=== PATIENT | female | born 1970 | race Two or more races ===

== ENCOUNTER 2016-07-07 16:27 | Inpatient (IN) | payer OTHER ==
[~2016-07-07] VITALS: Ht 165.1 cm; Wt 63.1 kg
[2016-07-07 16:46] LABS: BASOPHILS # (AUTO) 0.6 /CMM (0.0-0.2); EOSINOPHILS # (AUTO) 0.1 /CMM (0.0-0.7); EOSINOPHILS % (AUTO) 1.3 % (0.0-6.0); HEMATOCRIT 24 % (33-45); HEMOGLOBIN 7.3 g/dL (11.5-14.8); LYMPHOCYTES # (AUTO) 1.5 /CMM (0.8-4.8); LYMPHOCYTES % (AUTO) 14.9 % (20.0-44.0); MEAN CORPUSCULAR HEMOGLOBIN 18 PG (26.0-33.0); MEAN CORPUSCULAR HGB CONC 31 g/dl (31.0-36.0); MEAN CORPUSCULAR VOLUME 60 fL (82-100); MONOCYTES % (AUTO) 10.5 % (2.0-12.0); NEUTROPHILS # (AUTO) 6.8 /CMM (1.8-8.9); NEUTROPHILS % (AUTO) 66.9 % (43.0-81.0); PLATELET COUNT (AUTO) 501 /CMM (150-450)
[2016-07-07 16:47] LABS: BASOPHILS % (AUTO) 6.4 % (0.0-2.0); DIFF TOTAL % 100 %
[2016-07-07 16:53] LABS: ANION GAP 12 (5-14); CALCIUM, SERUM 8.7 mg/dL (8.5-10.1); CARBON DIOXIDE 27 mmol/L (21-32); CHLORIDE 101 mmol/L (98-107); CREATININE 0.8 mg/dL (0.6-1.3); GFR 77 mL/min (>60); GLUCOSE 101 mg/dL (74-106); POTASSIUM 3.5 mmol/L (3.5-5.1); SODIUM SERUM 137 mmol/L (136-145); UREA NITROGEN, BLOOD 6 mg/dL (7-18)
[2016-07-07 16:57] LABS: PROTHROMBIN TIME 10.5 SECS (9.5-12.7)
[2016-07-07 16:59] LABS: ALANINE AMINOTRANSFERASE 20 U/L (12-78); ALBUMIN 4.2 g/dL (3.4-5.0); ASPARTATE AMINOTRANSFERASE 19 U/L (15-37); BILIRUBIN,DIRECT 0.1 mg/dL (0.0-0.2); BILIRUBIN,TOTAL 0.9 mg/dL (0.2-1.0); INDIRECT BILIRUBIN 0.8 mg/dL (0.0-1.1); TOTAL PROTEIN, SERUM 7.8 g/dL (6.4-8.2)
[2016-07-07 17:01] LABS: TROPONIN I < 0.017 ng/mL (0.00-0.056)
[2016-07-07 18:01] LABS: EOSINOPHILS % (MANUAL) 2 % (0-4); LYMPHOCYTES % (MANUAL) 18 % (16-48)
[2016-07-07 18:02] LABS: ANISOCYTOSIS 1+; PLATELET ESTIMATE INCREASED
[2016-07-07] MEDS ORDERED: ACETAMINOPHEN 325 MG TABLET PO ONE (18:30)
[2016-07-07 18:40] LABS: IRON, SERUM 14 ug/dl (50-175); PERCENT SATURATION 3 % (14-33); TOTAL IRON BINDING CAPACITY 563 ug/dl (250-450)
[2016-07-07] MEDS ORDERED: ACETAMINOPHEN 325 MG TABLET ONE (18:44)
[2016-07-07 20:00] VITALS: BP 128/81
[2016-07-07] MEDS ORDERED: ZOLPIDEM TARTRATE 5 MG TABLET PO PRN (20:00)
[2016-07-07] MEDS ORDERED: ACETAMINOPHEN 325 MG TABLET PO PRN (20:00)
[2016-07-07] MEDS: HYDROCODONE/APAP 5/325MG 1 EACH TABLET PO PRN (20:25)
[2016-07-07] MEDS ORDERED: BLOOD IV SET 1 EA INFUS.SET MC ONE (22:53)
[2016-07-07] MEDS ORDERED: IV NS 0.9% 250 ML IV ONE ×2 (22:53→23:35)
[2016-07-08] VITALS (15 sets, daily range): BP systolic 99–138; BP diastolic 65–84
[2016-07-08 07:45] LABS: CALCIUM, SERUM 8.5 mg/dL (8.5-10.1); CREATININE 0.8 mg/dL (0.6-1.3); POTASSIUM 3.7 mmol/L (3.5-5.1)
[2016-07-08 08:06] LABS: BASOPHILS % (AUTO) 0.3 % (0.0-2.0); DIFF TOTAL % 100 %; EOSINOPHILS # (AUTO) 0.1 /CMM (0.0-0.7); EOSINOPHILS % (AUTO) 0.8 % (0.0-6.0); HEMATOCRIT 29 % (33-45); HEMOGLOBIN 8.8 g/dL (11.5-14.8); LYMPHOCYTES # (AUTO) 0.9 /CMM (0.8-4.8); MEAN CORPUSCULAR HEMOGLOBIN 21 PG (26.0-33.0); MEAN CORPUSCULAR HGB CONC 31 g/dl (31.0-36.0); MEAN CORPUSCULAR VOLUME 66 fL (82-100); MONOCYTES % (AUTO) 13.7 % (2.0-12.0); NEUTROPHILS # (AUTO) 5.3 /CMM (1.8-8.9); NEUTROPHILS % (AUTO) 72.2 % (43.0-81.0); PLATELET COUNT (AUTO) 399 /CMM (150-450); WHITE BLOOD COUNT (AUTO) 7.3 K/uL (4.3-11.0)
[2016-07-08] MEDS: HYDROCODONE/APAP 5/325MG 1 EACH TABLET PO PRN (10:27)
[2016-07-08] MEDS ORDERED: GUAIFENESIN/D-METHORPHAN HB 5 ML UDC PO PRN (11:00)
[2016-07-08] MEDS ORDERED: BLOOD IV SET 1 EA INFUS.SET MC ONE (11:56)
[2016-07-08] MEDS ORDERED: IV NS 0.9% 250 ML IV ONE (11:56)
[2016-07-08 19:05] LABS: KETONES,URINE NEGATIVE (NEGATIVE); LEUKOCYTE ESTERASE ,URINE TRACE (NEGATIVE)
[2016-07-08 19:14] LABS: ADD UA MICROSCOPIC YES
[2016-07-08 19:19] LABS: ADD URINE CULTURE NO; RBC,URINE 21-50 /HPF (0-2)
[2016-07-08] MEDS ORDERED: LEVOFLOXACIN (500MG) 500 MG TABLET PO SCH (20:00)
== END 2016-07-08 20:50 | disposition home or self-care (01) | DRG 812 ==
LOC: ER 16:28 → TELE 19:38 → MED 07-08 10:51
PROVIDERS: ADMIT Internal Medicine; ATTEND Internal Medicine
PROC: 30233N1 Transfusion of Nonautologous Red Blood Cells into Peripheral Vein, Percutaneous Approach (ICD-10-PCS; principal; 2016-07-07)
DX: D50.9 Iron deficiency anemia, unspecified (principal); R07.89 Other chest pain; N93.9 Abnormal uterine and vaginal bleeding, unspecified; D25.9 Leiomyoma of uterus, unspecified
CPT/HCPCS: 36415; 71010-TC; 80048-TC; 80076-TC; 81000-TC; 82728-TC; 82746; 83540-TC; 83690-TC; 84443-TC; 84484-TC; 84703-TC; 85025-TC; 85730-TC; 86850-TC; 86901; 86921-TC; 87081-TC; A4606; J7050; P9016-BL; Z7610

== ENCOUNTER 2016-08-07 16:41 | Emergency (ER) | payer OTHER ==
[~2016-08-07] VITALS: Ht 165.1 cm; Wt 60.8 kg
[2016-08-07] MEDS ORDERED: ACETAMINOPHEN 325 MG TABLET PO STA (17:04)
[2016-08-07] MEDS ORDERED: ACETAMINOPHEN ES 500 MG TABLET ONE (17:10)
[2016-08-07 17:16] LABS: BASOPHILS % (AUTO) 0.3 % (0.0-2.0); DIFF TOTAL % 100 %; EOSINOPHILS # (AUTO) 0.2 /CMM (0.0-0.7); EOSINOPHILS % (AUTO) 2.1 % (0.0-6.0); HEMATOCRIT 31 % (33-45); HEMOGLOBIN 10.1 g/dL (11.5-14.8); LYMPHOCYTES # (AUTO) 2.2 /CMM (0.8-4.8); LYMPHOCYTES % (AUTO) 25.3 % (20.0-44.0); MEAN CORPUSCULAR HEMOGLOBIN 25 PG (26.0-33.0); MEAN CORPUSCULAR HGB CONC 33 g/dl (31.0-36.0); MEAN CORPUSCULAR VOLUME 77 fL (82-100); MONOCYTES # (AUTO) 0.7 /CMM (0.1-1.30); MONOCYTES % (AUTO) 7.8 % (2.0-12.0); NEUTROPHILS # (AUTO) 5.5 /CMM (1.8-8.9); NEUTROPHILS % (AUTO) 64.5 % (43.0-81.0); PLATELET COUNT (AUTO) 308 /CMM (150-450); RED BLOOD CELL COUNT(AUTO) 3.98 MIL/uL (4.0-5.2); WHITE BLOOD COUNT (AUTO) 8.6 K/uL (4.3-11.0)
[2016-08-07 17:21] LABS: KETONES,URINE Negative (NEGATIVE); LEUKOCYTE ESTERASE ,URINE Trace (NEGATIVE)
[2016-08-07 17:22] LABS: ADD UA MICROSCOPIC YES
[2016-08-07 17:24] LABS: CREATININE 0.6 mg/dL (0.6-1.3); POTASSIUM 3.8 mmol/L (3.5-5.1)
[2016-08-07 17:29] LABS: ALBUMIN 3.8 g/dL (3.4-5.0); BILIRUBIN,TOTAL 0.4 mg/dL (0.2-1.0); TOTAL PROTEIN, SERUM 7.1 g/dL (6.4-8.2)
[2016-08-07 17:53] LABS: ADD URINE CULTURE NO; RBC,URINE 81-100 /HPF (0-2)
[2016-08-07 18:04] VITALS: BP 130/80
== END 2016-08-07 18:05 | disposition home or self-care (01) ==
LOC: ER 16:44
DX: D21.9 Benign neoplasm of connective and other soft tissue, unspecified (principal)
CPT/HCPCS: 36415; 76856; 80053; 81001; 83690; 84703; 85025; 86850; 99285; A4606; Z7610; 81000-TC